=== PATIENT | male | born 1950 | race Caucasian/White ===

== ENCOUNTER 2018-07-27 16:33 | Emergency (ER) | payer MEDICARE, BC ==
[2018-07-27 17:01] VITALS: BP 135/64
--- NOTE | 2018-07-27 17:36 | UC ---
Skin Complaint HPI - HPI Summary HPI Summary: C/O splinter under left 3rd finger nail. Pressure treated lumber. Unable to get splinter out, broke apart. - History of Current Complaint Chief Complaint: UCForeignBody Stated Complaint: LT MIDDLE FINGER COMPLAINT Hx Obtained From: Patient Onset/Duration: Sudden Onset, Lasting Hours - 7, Still Present Skin Exposure Onset/Duration: Hours Ago - 7 Onset Severity: Moderate Current Severity: Mild Pain Intensity: 0 Location: Hand (Left) - under the 3rd fingernail Character: Pain Aggravating Factor(s): Touch Alleviating Factor(s): Nothing Associated Signs & Symptoms: Positive: Tenderness Related History: Foreign Body - Allergy/Home Medications Allergies/Adverse Reactions: Allergies Allergy/AdvReac Type Severity Reaction Status Date / Time No Known Allergies Allergy Verified 07/27/18 17:01 Home Medications: Home Medications Fluticasone-Salmeterol 250-50* [Advair Diskus 250-50*] 1 puff INH BID 07/27/18 [ History Confirmed 07/27/18] Tiotropium CAP.INH* [Spiriva CAP.INH*] 1 cap.inh INH DAILY 07/27/18 [History Confirmed 07/27/18] PMH/Surg Hx/FS Hx/Imm Hx Endocrine History: Dyslipidemia Cardiovascular History: Hypertension Respiratory History: COPD GI/ History: Gastroesophageal Reflux - Surgical History Surgical History: Yes Surgery Procedure, Year, and Place: [place] [facility] [place] [facility]. 1982 LEFT SHOULDER FRACT, PIN PLACEMENT [place]. 1963 BRONE GRAFT FROM RT HIP TO RT [facility] - Family History Known Family History: Positive: Cardiac Disease, Hypertension, Diabetes - Social History Occupation: Retired Lives: With Family Alcohol Use: Daily Alcohol Amount: 6 PACK/DAY Substance Use Type: None Smoking Status (MU): Former Smoker Type: Cigarettes Amount Used/How Often: 1+PPD 40YRS Have You Smoked in the Last Year: No When Did the Patient Quit Smoking/Using Tobacco: 2008 - Immunization History Most Recent Influenza Vaccination: current Most Recent Tetanus Shot: 2018 Review of Systems All Other Systems Reviewed And Are Negative: Yes Skin: Positive: Other - splinter under the nail Respiratory: Positive: Cough - recent URI, resolving Is Patient Immunocompromised?: No Physical Exam Triage Information Reviewed: Yes Appearance: Well-Appearing, No Pain Distress, Well-Nourished Vital Signs: Initial Vital Signs Temp 97.6 F 07/27/18 16:54 Pulse 77 07/27/18 16:54 Resp 16 07/27/18 16:54 BP 135/64 07/27/18 16:54 Pulse Ox 97 07/27/18 16:54 Vital Signs Reviewed: Yes Neck exam: Normal Respiratory Exam: Normal Cardiovascular Exam: Normal Musculoskeletal Exam: Normal Neurological Exam: Normal Psychological Exam: Normal Skin: Positive: Other - splinter left 3rd fingernail. Images Hands: 1 - Splinter Course/Dx - Differential Diagnoses - Skin Complaint Differential Diagnoses: Cellulitis, Foreign Body, Lymphangitis - Diagnoses Provider Diagnosis: Foreign body finger Discharge - Sign-Out/Discharge Documenting (check all that apply): Patient Departure All imaging exams completed and their final reports reviewed: No Studies - Discharge Plan Condition: Stable Disposition: HOME Prescriptions: Cephalexin CAP* [Keflex 500 CAP*] 500 mg PO QID #12 cap Patient Education Materials: Soft Tissue Foreign Body (ED) Referrals: Swapnil Santamaria MD [Primary Care Provider] - Additional Instructions: Do warm soaks with epsom salts three times a day. It will eventually work its way out. - Billing Disposition and Condition Condition: STABLE Disposition: Home
== END 2018-07-27 17:48 | disposition home or self-care (01) ==
LOC: UCCORT 16:33
DX: S60.453A Superficial foreign body of left middle finger, initial encounter (principal); J44.9 Chronic obstructive pulmonary disease, unspecified; I10 Essential (primary) hypertension; Z87.891 Personal history of nicotine dependence; W45.8XXA Other foreign body or object entering through skin, initial encounter; Y92.9 Unspecified place or not applicable
CPT/HCPCS: 99212; G0463